=== PATIENT | female | born 1935 | race Caucasian/White ===

== ENCOUNTER 2018-02-06 13:12 | Emergency (ER) | payer OTHER ==
[~2018-02-06] VITALS: Ht 160 cm; Wt 69.7 kg
[2018-02-06 13:55] LABS: BASOPHILS # (AUTO) 0.04 x10^3/uL (0-0.1); BASOPHILS % (AUTO) 1 % (0-1); EOSINOPHILS # (AUTO) 0.09 x10^3/uL (0-0.4); EOSINOPHILS % (AUTO) 1 % (1-7); LYMPHOCYTES # (AUTO) 2.67 x10^3/uL (1-3.4); LYMPHOCYTES % (AUTO) 39 % (22-44); MD NO; MEAN CORPUSCULAR HEMOGLOBIN 30.3 pg (27.0-34.8); MEAN CORPUSCULAR HGB CONC 33.9 g/dL (32.4-35.8); MEAN CORPUSCULAR VOLUME 89.4 fL (80-100); MEAN PLATELET VOLUME 8.1 fL (7.4-10.4); MONOCYTES # (AUTO) 0.81 x10^3/uL (0.2-0.8); MONOCYTES % (AUTO) 12 % (2-9); NEUTROPHILS # (AUTO) 3.31 x10^3/uL (1.8-6.8); NEUTROPHILS % (AUTO) 48 % (42-75); PLATELET COUNT 202 x10^3/uL (130-400); RED BLOOD COUNT 4.73 x10^6/uL (3.82-5.3); RED CELL DISTRIBUTION WIDTH 14.3 % (9.6-15.2)
[2018-02-06 13:58] LABS: INTERNATIONAL NORMALIZED RATIO 1.03 (0.93-1.1); PROTHROMBIN TIME 10.7 Seconds (9.6-11.5)
[2018-02-06] MEDS ORDERED: SODIUM CHLORIDE FLUSH 10ML SYR IVF ONE (14:00)
[2018-02-06 14:03] LABS: ALANINE AMINOTRANSFERASE 21 U/L (12-78); ALBUMIN 3.4 g/dL (3.4-5.0); ANION GAP 7 mmol/L (5-15); CALCIUM 8.6 mg/dL (8.5-10.1); CHLORIDE 110 mmol/L (98-107); CREATININE 1.11 mg/dL (0.55-1.02)
[2018-02-06 14:07] LABS: ALKALINE PHOSPHATASE 79 U/L (45-117); BILIRUBIN,TOTAL 0.7 mg/dL (0.2-1.0); TOTAL PROTEIN 7.2 g/dL (6.4-8.2); TROPONIN I < 0.015 ng/mL (0.000-0.045)
[2018-02-06 17:13] VITALS: BP 165/76
== END 2018-02-06 17:16 | disposition home or self-care (01) ==
LOC: ED 14:15
DX: R20.2 Paresthesia of skin (principal); I10 Essential (primary) hypertension; I25.2 Old myocardial infarction; R79.1 Abnormal coagulation profile
CPT/HCPCS: 36415; 70450; 70551; 71045; 80053; 84484; 85025; 85610; 93005; 99285

== ENCOUNTER 2018-11-02 16:58 | Inpatient (IN) | payer MEDICARE, OTHER ==
[~2018-11-02] VITALS: Ht 160 cm; Wt 67.1 kg
[2018-11-02 17:32] LABS: BASOPHILS # (AUTO) 0.02 x10^3/uL (0-0.1); BASOPHILS % (AUTO) 0 % (0-1); EOSINOPHILS # (AUTO) 0.04 x10^3/uL (0-0.4); EOSINOPHILS % (AUTO) 1 % (1-7); LYMPHOCYTES % (AUTO) 18 % (22-44); MD NO; MEAN CORPUSCULAR HEMOGLOBIN 30.1 pg (27.0-34.8); MEAN CORPUSCULAR VOLUME 88.6 fL (80-100); MEAN PLATELET VOLUME 7.7 fL (7.4-10.4); MONOCYTES # (AUTO) 0.29 x10^3/uL (0.2-0.8); MONOCYTES % (AUTO) 4 % (2-9); NEUTROPHILS # (AUTO) 5.18 x10^3/uL (1.8-6.8); NEUTROPHILS % (AUTO) 77 % (42-75); PLATELET COUNT 237 x10^3/uL (130-400); RED BLOOD COUNT 4.64 x10^6/uL (3.82-5.3); RED CELL DISTRIBUTION WIDTH 14.1 % (9.6-15.2)
[2018-11-02 17:39] LABS: INTERNATIONAL NORMALIZED RATIO 1.03 (0.93-1.1); PROTHROMBIN TIME 10.8 Seconds (9.6-11.5)
[2018-11-02 17:42] LABS: ALBUMIN 3.7 g/dL (3.4-5.0); ANION GAP 5 mmol/L (5-15); CALCIUM 8.9 mg/dL (8.5-10.1); CHLORIDE 111 mmol/L (98-107)
--- NOTE | 2018-11-02 17:43 | NUR ---
THIS IS A 83 Y/O FEMALE PT ARRIVING FROM HOME AFTER DAUGHTER DISCOVERED HER WITH APHASIA AND LEFT SIDED DROOP AT HOME AT 1230. DAUGHTER SAW HER MOTHER LAST NORMAL @ 0730. PT HAS A NIH SCALE OF 6 AT HIS TIME. (1 GAZE, 2, FACIAL PALSY, 1 LEG AND ARM LEFT, 1 APHASIA, 1 DYSATHRIA). PT IS ABLE TO FOLLOW COMMANDS AND IS A/OX4. PT HAD EMESIS IN ROUTE ON AMBULANCE. DAUGHTER REPORTS COMPLEX MEDICAL HX. PT TAKEN TO CT IMMEDIATELY FOR EVAL. MD PAYTON AT BEDSIDE FOR EVALUATION WELL PRIOR TO CT. BG NORMAL AT THIS TIME. PT CONNECTED TO ALL MONITORS (RNS PRESENT FABBY CCU, REBEL Nichols NEURO NURSE, RAMSES ED RN) PAGE TO NEURO PLACED WELL.
[2018-11-02 17:46] LABS: ALANINE AMINOTRANSFERASE 23 U/L (12-78); ALKALINE PHOSPHATASE 93 U/L (45-117); BILIRUBIN,TOTAL 0.8 mg/dL (0.2-1.0); CREATININE 1.17 mg/dL (0.55-1.02); TOTAL PROTEIN 7.8 g/dL (6.4-8.2)
--- NOTE | 2018-11-02 18:22 | NUR ---
BREAK RN: pt laying on gurney sleeping, NAD with chest rise/fall, no needs at this time, family at BS, call light within reach.
[2018-11-02] MEDS ORDERED: SODIUM CHLORIDE FLUSH 10ML SYR IVF PRN (18:30)
[2018-11-02] MEDS ORDERED: LABETALOL 5MG/ML, 20ML IV PRN (19:00)
[2018-11-02] MEDS ORDERED: ONDANSETRON 2MG/ML, 2ML IVPush PRN (19:00)
[2018-11-02] MEDS ORDERED: ACETAMINOPHEN 325 MG TABLET PO PRN (19:00)
[2018-11-02] MEDS ORDERED: ASPI-650 PO (19:37)
[2018-11-02] MEDS ORDERED: ATOR40TA78 PO (19:37)
[2018-11-02] MEDS ORDERED: LISI30TA4 PO (19:37)
[2018-11-02 20:14] VITALS: BP 136/53
[2018-11-02] MEDS: ATORVASTATIN 40 MG TABLET PO SCH (21:00)
[2018-11-03 00:03] VITALS: BP 124/51
[2018-11-03] MEDS ORDERED: OMNIPAQUE 350 MG/ML, 100ML BOTTLE ONE (00:41)
[2018-11-03 05:21] LABS: BASOPHILS # (AUTO) 0.02 x10^3/uL (0-0.1); BASOPHILS % (AUTO) 0 % (0-1); EOSINOPHILS # (AUTO) 0.01 x10^3/uL (0-0.4); EOSINOPHILS % (AUTO) 0 % (1-7); LYMPHOCYTES # (AUTO) 1.53 x10^3/uL (1-3.4); LYMPHOCYTES % (AUTO) 20 % (22-44); MD NO; MEAN CORPUSCULAR HGB CONC 34.3 g/dL (32.4-35.8); MEAN CORPUSCULAR VOLUME 87.6 fL (80-100); MEAN PLATELET VOLUME 7.9 fL (7.4-10.4); MONOCYTES % (AUTO) 8 % (2-9); NEUTROPHILS % (AUTO) 72 % (42-75); PLATELET COUNT 216 x10^3/uL (130-400); RED BLOOD COUNT 4.33 x10^6/uL (3.82-5.3)
[2018-11-03 05:37] LABS: ALBUMIN 3.4 g/dL (3.4-5.0); ANION GAP 5 mmol/L (5-15); CALCIUM 8.5 mg/dL (8.5-10.1); CHLORIDE 113 mmol/L (98-107)
[2018-11-03 05:40] LABS: ALANINE AMINOTRANSFERASE 21 U/L (12-78); ALKALINE PHOSPHATASE 79 U/L (45-117); BILIRUBIN,TOTAL 0.8 mg/dL (0.2-1.0); CHOL/HDL RATIO 2.4; CHOLESTEROL, TOTAL 162 mg/dL (140-239); CREATININE 1.13 mg/dL (0.55-1.02); HDL CHOL % 42 % (28-40); HDL CHOLESTEROL (DIRECT) 68 mg/dL (40-60); LDL CHOLESTEROL,CALCULATED 80 mg/dL (54-169); LDL/HDL RATIO 1.2 (0.5-3.0); TRIGLYCERIDES 72 mg/dL (50-200); VLDL CHOLESTEROL 14 mg/dL (0-25)
[2018-11-03 06:14] LABS: HEMOGLOBIN A1C 6.1 % (4.2-6.3)
[2018-11-03 08:59] VITALS: BP 116/62
--- NOTE | 2018-11-03 11:50 | NUR ---
REC CHOPPED/THIN; swallow precautions sheet posted at bedside Addendum: 11/03/18 at [address] Amended: Links added.
[2018-11-03 12:30] VITALS: BP 129/65
[2018-11-03] MEDS: CLOPIDOGREL 75 MG TABLET PO SCH (17:09)
[2018-11-03] MEDS: ASPIRIN 81 MG TABLET CHEW PO/NG SCH (17:09)
[2018-11-03 18:36] VITALS: BP 108/66
[2018-11-03] MEDS: ATORVASTATIN 40 MG TABLET PO SCH (21:07)
[2018-11-04 00:57] VITALS: BP 161/84
[2018-11-04 05:44] LABS: ALBUMIN 3.2 g/dL (3.4-5.0); ANION GAP 5 mmol/L (5-15); CALCIUM 8.6 mg/dL (8.5-10.1); CHLORIDE 112 mmol/L (98-107)
[2018-11-04 05:47] LABS: ALANINE AMINOTRANSFERASE 18 U/L (12-78); ALKALINE PHOSPHATASE 75 U/L (45-117); CREATININE 1.09 mg/dL (0.55-1.02); TOTAL PROTEIN 6.9 g/dL (6.4-8.2)
[2018-11-04 06:04] LABS: BASOPHILS # (AUTO) 0.04 x10^3/uL (0-0.1); BASOPHILS % (AUTO) 1 % (0-1); EOSINOPHILS # (AUTO) 0.06 x10^3/uL (0-0.4); EOSINOPHILS % (AUTO) 1 % (1-7); LYMPHOCYTES # (AUTO) 1.67 x10^3/uL (1-3.4); LYMPHOCYTES % (AUTO) 28 % (22-44); MD NO; MEAN CORPUSCULAR HGB CONC 34.1 g/dL (32.4-35.8); MEAN CORPUSCULAR VOLUME 88.2 fL (80-100); MONOCYTES # (AUTO) 0.66 x10^3/uL (0.2-0.8); MONOCYTES % (AUTO) 11 % (2-9); NEUTROPHILS # (AUTO) 3.57 x10^3/uL (1.8-6.8); NEUTROPHILS % (AUTO) 60 % (42-75); PLATELET COUNT 206 x10^3/uL (130-400); RED BLOOD COUNT 4.43 x10^6/uL (3.82-5.3); RED CELL DISTRIBUTION WIDTH 14.5 % (9.6-15.2)
[2018-11-04 07:40] VITALS: BP 155/64
[2018-11-04] MEDS: CLOPIDOGREL 75 MG TABLET PO SCH (08:10)
[2018-11-04] MEDS: ASPIRIN 81 MG TABLET CHEW PO/NG SCH (08:13)
[2018-11-04 12:59] VITALS: BP 128/58
[2018-11-04 20:00] VITALS: BP 126/66
[2018-11-04] MEDS: ATORVASTATIN 40 MG TABLET PO SCH (20:45)
[2018-11-05 00:47] VITALS: BP 137/69
[2018-11-05 04:25] LABS: BASOPHILS # (AUTO) 0.02 x10^3/uL (0-0.1); BASOPHILS % (AUTO) 0 % (0-1); EOSINOPHILS # (AUTO) 0.08 x10^3/uL (0-0.4); EOSINOPHILS % (AUTO) 2 % (1-7); LYMPHOCYTES # (AUTO) 1.35 x10^3/uL (1-3.4); LYMPHOCYTES % (AUTO) 23 % (22-44); MD NO; MEAN CORPUSCULAR HEMOGLOBIN 30.6 pg (27.0-34.8); MEAN CORPUSCULAR HGB CONC 34.5 g/dL (32.4-35.8); MEAN CORPUSCULAR VOLUME 88.6 fL (80-100); MEAN PLATELET VOLUME 8.1 fL (7.4-10.4); MONOCYTES # (AUTO) 0.74 x10^3/uL (0.2-0.8); MONOCYTES % (AUTO) 13 % (2-9); NEUTROPHILS # (AUTO) 3.59 x10^3/uL (1.8-6.8); NEUTROPHILS % (AUTO) 62 % (42-75); PLATELET COUNT 189 x10^3/uL (130-400); RED BLOOD COUNT 4.67 x10^6/uL (3.82-5.3); RED CELL DISTRIBUTION WIDTH 14.3 % (9.6-15.2)
[2018-11-05 04:30] LABS: ALBUMIN 3.3 g/dL (3.4-5.0); ANION GAP 4 mmol/L (5-15); CALCIUM 8.5 mg/dL (8.5-10.1); CHLORIDE 112 mmol/L (98-107); CREATININE 1.07 mg/dL (0.55-1.02)
[2018-11-05 08:15] VITALS: BP 127/62
[2018-11-05] MEDS: CLOPIDOGREL 75 MG TABLET PO SCH (09:55)
[2018-11-05] MEDS: ASPIRIN 81 MG TABLET CHEW PO/NG SCH (09:55)
[2018-11-05 13:15] VITALS: BP 143/64
[2018-11-05 18:53] VITALS: BP 162/78
[2018-11-05 20:42] VITALS: BP 142/72
[2018-11-05] MEDS: ATORVASTATIN 40 MG TABLET PO SCH (21:11)
[2018-11-06 01:37] VITALS: BP 142/67
[2018-11-06 04:53] VITALS: BP 127/67
[2018-11-06 06:49] VITALS: BP 140/76
[2018-11-06] MEDS: CLOPIDOGREL 75 MG TABLET PO SCH (09:43)
[2018-11-06] MEDS: ASPIRIN 81 MG TABLET CHEW PO/NG SCH (09:43)
[2018-11-06 14:04] VITALS: BP 126/86
[2018-11-06 19:19] VITALS: BP 126/74
[2018-11-06] MEDS: ATORVASTATIN 40 MG TABLET PO SCH (20:40)
[2018-11-06] MEDS: APIXABAN 5 MG TABLET PO SCH (20:40)
[2018-11-07 00:16] VITALS: BP 120/74
[2018-11-07 03:55] VITALS: BP 111/61
[2018-11-07 04:54] LABS: BASOPHILS # (AUTO) 0.03 x10^3/uL (0-0.1); BASOPHILS % (AUTO) 0 % (0-1); EOSINOPHILS # (AUTO) 0.05 x10^3/uL (0-0.4); EOSINOPHILS % (AUTO) 1 % (1-7); LYMPHOCYTES # (AUTO) 1.79 x10^3/uL (1-3.4); LYMPHOCYTES % (AUTO) 24 % (22-44); MD NO; MEAN CORPUSCULAR HEMOGLOBIN 30.5 pg (27.0-34.8); MEAN CORPUSCULAR HGB CONC 34.7 g/dL (32.4-35.8); MEAN CORPUSCULAR VOLUME 87.9 fL (80-100); MEAN PLATELET VOLUME 8.2 fL (7.4-10.4); MONOCYTES % (AUTO) 10 % (2-9); NEUTROPHILS # (AUTO) 4.88 x10^3/uL (1.8-6.8); NEUTROPHILS % (AUTO) 66 % (42-75); PLATELET COUNT 242 x10^3/uL (130-400); RED BLOOD COUNT 5.49 x10^6/uL (3.82-5.3); RED CELL DISTRIBUTION WIDTH 13.8 % (9.6-15.2)
[2018-11-07 05:09] LABS: CHLORIDE 113 mmol/L (98-107)
[2018-11-07 05:16] LABS: ANION GAP 6 mmol/L (5-15); CALCIUM 9.1 mg/dL (8.5-10.1); CREATININE 1.19 mg/dL (0.55-1.02)
[2018-11-07 05:17] LABS: ALANINE AMINOTRANSFERASE 21 U/L (12-78); ALBUMIN 3.6 g/dL (3.4-5.0); ALKALINE PHOSPHATASE 101 U/L (45-117); BILIRUBIN,TOTAL 1.2 mg/dL (0.2-1.0)
[2018-11-07 05:48] LABS: CULTURE INDICATED? YES; MICROSCOPIC INDICATED
[2018-11-07 07:40] VITALS: BP 130/85
[2018-11-07] MEDS: ASPIRIN 81 MG TABLET CHEW PO/NG SCH (08:46)
[2018-11-07] MEDS: APIXABAN 5 MG TABLET PO SCH ×2 (08:46→20:58)
[2018-11-07] MEDS: SODIUM CHLORIDE 0.45% 1,000 ML IV SCH ×2 (08:54→16:58)
[2018-11-07 11:32] VITALS: BP 127/91
[2018-11-07] MEDS: METOPROLOL TARTRATE 25 MG TABLET PO SCH ×2 (16:58→20:58)
[2018-11-07 18:30] VITALS: BP 139/90
[2018-11-07] MEDS: ATORVASTATIN 40 MG TABLET PO SCH (20:57)
[2018-11-07 23:35] VITALS: BP 124/85
[2018-11-08] MEDS: SODIUM CHLORIDE 0.45% 1,000 ML IV SCH ×2 (01:01→09:06)
[2018-11-08 03:40] VITALS: BP 106/51
[2018-11-08 07:52] VITALS: BP 112/71
[2018-11-08] MEDS ORDERED: METOPROLOL TARTRATE 25 MG TABLET PO SCH (09:00)
[2018-11-08] MEDS: APIXABAN 5 MG TABLET PO SCH (09:05)
[2018-11-08] MEDS: ASPIRIN 81 MG TABLET CHEW PO/NG SCH (09:05)
[2018-11-08] MEDS ORDERED: ASPI-515 PO/NG (09:54)
[2018-11-08] MEDS ORDERED: APIX5TAB PO (09:54)
[2018-11-08] MEDS ORDERED: METO25TA35 PO (09:54)
[2018-11-08] MEDS ORDERED: AMOX1TAB64 PO (10:01)
[2018-11-08 12:35] VITALS: BP 130/66
== END 2018-11-08 14:51 | DRG 65 ==
LOC: ED 18:06 → EDIP 18:15 → 4WST 19:54
PROVIDERS: ADMIT Internal Medicine; ATTEND Internal Medicine
DX: I63.9 Cerebral infarction, unspecified (principal); D68.69 Other thrombophilia; I50.30 Unspecified diastolic (congestive) heart failure; I13.0 Hypertensive heart and chronic kidney disease with heart failure and stage 1 through stage 4 chronic kidney disease, or unspecified chronic kidney disease; I65.21 Occlusion and stenosis of right carotid artery; R29.810 Facial weakness; I48.0 Paroxysmal atrial fibrillation; N18.9 Chronic kidney disease, unspecified; I25.10 Atherosclerotic heart disease of native coronary artery without angina pectoris; R47.01 Aphasia; Z86.73 Personal history of transient ischemic attack (TIA), and cerebral infarction without residual deficits; Z79.82 Long term (current) use of aspirin; Z79.01 Long term (current) use of anticoagulants; Z79.02 Long term (current) use of antithrombotics/antiplatelets; Z79.899 Other long term (current) drug therapy; I25.2 Old myocardial infarction
CPT/HCPCS: 36415; 70450; 70496; 70498; 70551; 80048; 80053; 80061; 81001; 82040; 82962; 83036; 83735; 84100; 85025; 85520; 85610; 85730; 87086; 93005; 93306; 93880; 96374; 99285; G0378; J2405; Q9967; 92523-GN

== ENCOUNTER 2019-01-05 16:19 | Inpatient (IN) | payer MEDICARE ==
[~2019-01-05] VITALS: Ht 160 cm; Wt 66.4 kg
[~2019-01-05 16:19] MED LIST: AMOX1TAB64 PO; APIX5TAB PO; ASPI-515 PO/NG; ASPI-650 PO; ATOR40TA78 PO; LISI30TA4 PO; METO25TA35 PO
--- NOTE | 2019-01-05 16:30 | NUR ---
PT PLACED ON HEART MONITOR, BP CUFF, PULSE OX. EKG COMPLETED AT BS. PT DENIES PAIN OR ANY SX. PER PRAVEEN, PT WITH HX OF CVA WITH RESIDUAL L SIDED WEAKNESS AND SLURRED SPEECH. CALL LIGHT WITHIN REACH, WARM BLANKET PROVIDED.
[2019-01-05] MEDS ORDERED: SODIUM CHLORIDE FLUSH 10ML SYR IVF ONE (17:00)
[2019-01-05 17:02] LABS: BASOPHILS # (AUTO) 0.02 x10^3/uL (0-0.1); BASOPHILS % (AUTO) 0 % (0-1); EOSINOPHILS # (AUTO) 0.06 x10^3/uL (0-0.4); EOSINOPHILS % (AUTO) 1 % (1-7); LYMPHOCYTES % (AUTO) 30 % (22-44); MD NO; MEAN CORPUSCULAR HGB CONC 33.6 g/dL (32.4-35.8); MEAN CORPUSCULAR VOLUME 92.4 fL (80-100); MEAN PLATELET VOLUME 8.4 fL (7.4-10.4); MONOCYTES # (AUTO) 0.56 x10^3/uL (0.2-0.8); MONOCYTES % (AUTO) 11 % (2-9); NEUTROPHILS # (AUTO) 2.81 x10^3/uL (1.8-6.8); NEUTROPHILS % (AUTO) 57 % (42-75); PLATELET COUNT 173 x10^3/uL (130-400); RED BLOOD COUNT 4.67 x10^6/uL (3.82-5.3); RED CELL DISTRIBUTION WIDTH 15.7 % (9.6-15.2)
[2019-01-05 17:09] LABS: INTERNATIONAL NORMALIZED RATIO 1.1 (0.93-1.1); PROTHROMBIN TIME 11.5 Seconds (9.6-11.5)
[2019-01-05 17:11] LABS: ALANINE AMINOTRANSFERASE 22 U/L (12-78); ALBUMIN 3.5 g/dL (3.4-5.0); ANION GAP 6 mmol/L (5-15); CALCIUM 8.5 mg/dL (8.5-10.1); CHLORIDE 111 mmol/L (98-107); CREATININE 1.14 mg/dL (0.55-1.02)
[2019-01-05 17:14] LABS: ALKALINE PHOSPHATASE 83 U/L (45-117); TOTAL PROTEIN 7.2 g/dL (6.4-8.2)
--- NOTE | 2019-01-05 17:17 | NUR ---
PT UP TO BSC WITH SBA. URINE COLLECTED/SENT TO LAB. AWAITING CT AND LAB RESULTS. FAMILY AT BS. CALL LIGHT WITHIN REACH, CHARI BECKERER PLACED. PT AND FAMILY UPDATED ON POC.
[2019-01-05 17:27] LABS: MICROSCOPIC AUTO
[2019-01-05 17:42] LABS: CULTURE INDICATED? YES
--- NOTE | 2019-01-05 17:55 | NUR ---
ALL RESULTS BACK, PT FOR RECHECK.
[2019-01-05] MEDS ORDERED: METO25TA35 PO (18:25)
[2019-01-05] MEDS ORDERED: NAPR220C2 PO (18:25)
[2019-01-05] MEDS ORDERED: FAMO-79 PO (18:25)
[2019-01-05] MEDS ORDERED: GABA300C10 PO (18:25)
[2019-01-05] MEDS ORDERED: ALPR0.5T6 PO (18:25)
[2019-01-05] MEDS ORDERED: SODIUM CHLORIDE FLUSH 10ML SYR IVF PRN (18:30)
--- NOTE | 2019-01-05 18:56 | NUR ---
PT TO BE ADMITTED, FAMILY UPDATED. AWAITING ADMIT ROOM.
[2019-01-05] MEDS ORDERED: POLYETHYLENE GLYCOL 17 GM PACKET PO PRN (19:30)
[2019-01-05] MEDS ORDERED: ONDANSETRON ODT 4 MG PO PRN (19:30)
[2019-01-05] MEDS ORDERED: CEFTRIAXONE PMX 1GM/50ML 50 ML IV SCH (19:30)
[2019-01-05] MEDS ORDERED: BISACODYL 10 MG SUPP PR PRN (19:30)
[2019-01-05] MEDS ORDERED: NAPROXEN 250 MG TABLET PO PRN (19:30)
--- NOTE | 2019-01-05 19:35 | NUR ---
REPORT TO SMITH RN, PT READY FOR TRANSPORT.
[2019-01-05 20:06] VITALS: BP 154/83
[2019-01-05] MEDS: ATORVASTATIN 40 MG TABLET PO SCH (21:28)
[2019-01-05] MEDS: FAMOTIDINE 20 MG TABLET PO SCH (21:29)
[2019-01-05] MEDS: SODIUM CHLORIDE 0.45% 1,000 ML IV SCH (21:29)
[2019-01-05] MEDS: METOPROLOL TARTRATE 25 MG TABLET PO SCH (21:29)
[2019-01-05] MEDS: GABAPENTIN 300 MG CAPSULE PO SCH (21:29)
[2019-01-05] MEDS: APIXABAN 5 MG TABLET PO SCH (21:29)
[2019-01-06 01:02] VITALS: BP 145/87
[2019-01-06 06:50] LABS: BASOPHILS # (AUTO) 0.03 x10^3/uL (0-0.1); BASOPHILS % (AUTO) 1 % (0-1); EOSINOPHILS # (AUTO) 0.09 x10^3/uL (0-0.4); EOSINOPHILS % (AUTO) 2 % (1-7); LYMPHOCYTES # (AUTO) 1.57 x10^3/uL (1-3.4); LYMPHOCYTES % (AUTO) 31 % (22-44); MD NO; MEAN CORPUSCULAR HEMOGLOBIN 30.3 pg (27.0-34.8); MEAN CORPUSCULAR HGB CONC 33.2 g/dL (32.4-35.8); MEAN CORPUSCULAR VOLUME 91.5 fL (80-100); MEAN PLATELET VOLUME 8.3 fL (7.4-10.4); MONOCYTES # (AUTO) 0.59 x10^3/uL (0.2-0.8); MONOCYTES % (AUTO) 12 % (2-9); NEUTROPHILS # (AUTO) 2.76 x10^3/uL (1.8-6.8); NEUTROPHILS % (AUTO) 55 % (42-75); PLATELET COUNT 179 x10^3/uL (130-400); RED BLOOD COUNT 4.66 x10^6/uL (3.82-5.3); RED CELL DISTRIBUTION WIDTH 15.4 % (9.6-15.2)
[2019-01-06 07:02] LABS: ALANINE AMINOTRANSFERASE 19 U/L (12-78); ALBUMIN 3.2 g/dL (3.4-5.0); ANION GAP 6 mmol/L (5-15); CALCIUM 8.5 mg/dL (8.5-10.1); CHLORIDE 113 mmol/L (98-107); CREATININE 0.98 mg/dL (0.55-1.02)
[2019-01-06 07:04] LABS: ALKALINE PHOSPHATASE 83 U/L (45-117); BILIRUBIN,TOTAL 1.2 mg/dL (0.2-1.0); TOTAL PROTEIN 6.9 g/dL (6.4-8.2)
[2019-01-06 07:42] VITALS: BP 155/78
[2019-01-06] MEDS: APIXABAN 5 MG TABLET PO SCH ×2 (09:26→23:02)
[2019-01-06] MEDS: METOPROLOL TARTRATE 25 MG TABLET PO SCH ×2 (09:26→23:03)
[2019-01-06] MEDS: FAMOTIDINE 20 MG TABLET PO SCH ×2 (09:26→23:03)
[2019-01-06] MEDS: SENNA/DOCUSATE TABLET PO SCH (09:28)
[2019-01-06 10:07] VITALS: BP 109/62
[2019-01-06] MEDS ORDERED: PIPERACILLIN/TAZO/PMX 3.375GM 50 ML IV SCH (12:30)
[2019-01-06] MEDS ORDERED: CEFTRIAXONE PMX 1GM/50ML 50 ML IV SCH (13:00)
[2019-01-06 13:35] VITALS: BP 156/70
[2019-01-06] MEDS: ACETAMINOPHEN 325 MG TABLET PO PRN (15:58)
[2019-01-06] MEDS: SODIUM CHLORIDE 0.45% 1,000 ML IV SCH ×2 (15:58→23:15)
[2019-01-06 20:12] VITALS: BP 146/70
[2019-01-06] MEDS: ATORVASTATIN 40 MG TABLET PO SCH (23:02)
[2019-01-06] MEDS: GABAPENTIN 300 MG CAPSULE PO SCH (23:02)
[2019-01-07 00:10] VITALS: BP 157/71
[2019-01-07 05:13] LABS: ALANINE AMINOTRANSFERASE 19 U/L (12-78); ALBUMIN 3.1 g/dL (3.4-5.0); ANION GAP 7 mmol/L (5-15); CALCIUM 8.7 mg/dL (8.5-10.1); CHLORIDE 115 mmol/L (98-107); CREATININE 0.89 mg/dL (0.55-1.02)
[2019-01-07 05:15] LABS: ALKALINE PHOSPHATASE 84 U/L (45-117); TOTAL PROTEIN 6.8 g/dL (6.4-8.2)
[2019-01-07 05:24] LABS: BASOPHILS # (AUTO) 0.01 x10^3/uL (0-0.1); BASOPHILS % (AUTO) 0 % (0-1); EOSINOPHILS # (AUTO) 0.11 x10^3/uL (0-0.4); EOSINOPHILS % (AUTO) 2 % (1-7); LYMPHOCYTES # (AUTO) 1.29 x10^3/uL (1-3.4); LYMPHOCYTES % (AUTO) 26 % (22-44); MD NO; MEAN CORPUSCULAR HEMOGLOBIN 31.3 pg (27.0-34.8); MEAN CORPUSCULAR HGB CONC 34.4 g/dL (32.4-35.8); MEAN CORPUSCULAR VOLUME 91.1 fL (80-100); MEAN PLATELET VOLUME 8.2 fL (7.4-10.4); MONOCYTES # (AUTO) 0.58 x10^3/uL (0.2-0.8); MONOCYTES % (AUTO) 12 % (2-9); NEUTROPHILS # (AUTO) 2.89 x10^3/uL (1.8-6.8); NEUTROPHILS % (AUTO) 59 % (42-75); PLATELET COUNT 182 x10^3/uL (130-400); RED BLOOD COUNT 4.58 x10^6/uL (3.82-5.3); RED CELL DISTRIBUTION WIDTH 15.3 % (9.6-15.2)
[2019-01-07 07:34] VITALS: BP 153/78
[2019-01-07] MEDS: ACETAMINOPHEN 325 MG TABLET PO PRN (09:13)
[2019-01-07] MEDS: APIXABAN 5 MG TABLET PO SCH ×2 (09:13→20:14)
[2019-01-07] MEDS: SENNA/DOCUSATE TABLET PO SCH (09:14)
[2019-01-07] MEDS: METOPROLOL TARTRATE 25 MG TABLET PO SCH ×2 (09:14→20:14)
[2019-01-07] MEDS: FAMOTIDINE 20 MG TABLET PO SCH ×2 (09:14→20:14)
[2019-01-07] MEDS: DEXTROSE 5% 1,000 ML IV SCH (12:54)
[2019-01-07 15:05] VITALS: BP 160/90
[2019-01-07 19:46] VITALS: BP 156/81
[2019-01-07] MEDS: ATORVASTATIN 40 MG TABLET PO SCH (20:14)
[2019-01-07] MEDS: GABAPENTIN 300 MG CAPSULE PO SCH (20:14)
[2019-01-08] MEDS: DEXTROSE 5% 1,000 ML IV SCH (02:51)
[2019-01-08 02:52] VITALS: BP 143/77
[2019-01-08 05:16] LABS: BASOPHILS # (AUTO) 0.04 x10^3/uL (0-0.1); BASOPHILS % (AUTO) 1 % (0-1); EOSINOPHILS # (AUTO) 0.09 x10^3/uL (0-0.4); EOSINOPHILS % (AUTO) 2 % (1-7); LYMPHOCYTES # (AUTO) 1.21 x10^3/uL (1-3.4); LYMPHOCYTES % (AUTO) 25 % (22-44); MD NO; MEAN CORPUSCULAR HEMOGLOBIN 31.1 pg (27.0-34.8); MEAN CORPUSCULAR HGB CONC 33.6 g/dL (32.4-35.8); MEAN CORPUSCULAR VOLUME 92.5 fL (80-100); MEAN PLATELET VOLUME 8.3 fL (7.4-10.4); MONOCYTES # (AUTO) 0.67 x10^3/uL (0.2-0.8); MONOCYTES % (AUTO) 14 % (2-9); NEUTROPHILS # (AUTO) 2.88 x10^3/uL (1.8-6.8); NEUTROPHILS % (AUTO) 59 % (42-75); PLATELET COUNT 182 x10^3/uL (130-400); RED BLOOD COUNT 4.72 x10^6/uL (3.82-5.3); RED CELL DISTRIBUTION WIDTH 14.8 % (9.6-15.2)
[2019-01-08 05:35] LABS: CHLORIDE 112 mmol/L (98-107)
[2019-01-08 05:42] LABS: ALANINE AMINOTRANSFERASE 18 U/L (12-78); ALBUMIN 3.2 g/dL (3.4-5.0); ALKALINE PHOSPHATASE 84 U/L (45-117); ANION GAP 5 mmol/L (5-15); CALCIUM 8.7 mg/dL (8.5-10.1); CREATININE 0.94 mg/dL (0.55-1.02)
[2019-01-08 09:39] VITALS: BP 128/81
[2019-01-08] MEDS: SENNA/DOCUSATE TABLET PO SCH (09:41)
[2019-01-08] MEDS: APIXABAN 5 MG TABLET PO SCH ×2 (09:41→20:26)
[2019-01-08] MEDS: LISINOPRIL 5 MG TABLET PO SCH (09:43)
[2019-01-08] MEDS: FAMOTIDINE 20 MG TABLET PO SCH (09:43)
[2019-01-08] MEDS: METOPROLOL TARTRATE 25 MG TABLET PO SCH ×2 (09:43→20:26)
[2019-01-08] MEDS ORDERED: POTASSIUM CHLORIDE 20 MEQ TAB.ER.PRT PO ONE (11:00)
[2019-01-08 13:12] VITALS: BP 126/72
[2019-01-08 19:27] VITALS: BP 122/78
[2019-01-08] MEDS: ATORVASTATIN 40 MG TABLET PO SCH (20:25)
[2019-01-08] MEDS: GABAPENTIN 300 MG CAPSULE PO SCH (20:26)
[2019-01-08] MEDS ORDERED: FAMOTIDINE 20 MG TABLET PO SCH (21:00)
[2019-01-09 04:28] VITALS: BP 138/81
[2019-01-09] MEDS: DEXTROSE 5% 1,000 ML IV SCH ×2 (05:14→16:20)
[2019-01-09 05:38] LABS: BASOPHILS # (AUTO) 0.05 x10^3/uL (0-0.1); BASOPHILS % (AUTO) 1 % (0-1); EOSINOPHILS % (AUTO) 2 % (1-7); LYMPHOCYTES # (AUTO) 1.83 x10^3/uL (1-3.4); LYMPHOCYTES % (AUTO) 35 % (22-44); MD NO; MEAN CORPUSCULAR HGB CONC 33.6 g/dL (32.4-35.8); MEAN CORPUSCULAR VOLUME 92.3 fL (80-100); MEAN PLATELET VOLUME 8.3 fL (7.4-10.4); MONOCYTES # (AUTO) 0.62 x10^3/uL (0.2-0.8); MONOCYTES % (AUTO) 12 % (2-9); NEUTROPHILS # (AUTO) 2.67 x10^3/uL (1.8-6.8); NEUTROPHILS % (AUTO) 51 % (42-75); PLATELET COUNT 191 x10^3/uL (130-400); RED BLOOD COUNT 4.71 x10^6/uL (3.82-5.3); RED CELL DISTRIBUTION WIDTH 15.3 % (9.6-15.2)
[2019-01-09 05:53] LABS: ALANINE AMINOTRANSFERASE 20 U/L (12-78); ALBUMIN 3.2 g/dL (3.4-5.0); ANION GAP 4 mmol/L (5-15); CALCIUM 9.2 mg/dL (8.5-10.1); CHLORIDE 115 mmol/L (98-107)
[2019-01-09 05:55] LABS: ALKALINE PHOSPHATASE 80 U/L (45-117); BILIRUBIN,TOTAL 1.1 mg/dL (0.2-1.0); TOTAL PROTEIN 7.1 g/dL (6.4-8.2)
[2019-01-09 08:00] VITALS: BP 128/75
[2019-01-09] MEDS: SENNA/DOCUSATE TABLET PO SCH (09:00)
[2019-01-09] MEDS ORDERED: ACETAMINOPHEN 325 MG TABLET PO PRN (09:00)
[2019-01-09 09:16] VITALS: BP 111/60
[2019-01-09] MEDS: LACTOBACILLUS CHEW TABLET PO SCH ×2 (09:17→15:38)
[2019-01-09] MEDS: LISINOPRIL 5 MG TABLET PO SCH (09:17)
[2019-01-09] MEDS: APIXABAN 5 MG TABLET PO SCH (09:18)
[2019-01-09] MEDS: METOPROLOL TARTRATE 25 MG TABLET PO SCH (09:20)
[2019-01-09] MEDS ORDERED: METO25TA35 PO (12:51)
[2019-01-09] MEDS ORDERED: LISI5TAB7 PO (12:51)
[2019-01-09] MEDS ORDERED: ACID1TAB7 PO (12:51)
[2019-01-09 13:45] VITALS: BP 149/84
== END 2019-01-09 18:15 | disposition home health service (06) | DRG 640 ==
LOC: ED 16:31 → EDIP 18:27 → 4EST 19:49
PROVIDERS: ADMIT Family Medicine; ATTEND Family Medicine
DX: E86.0 Dehydration (principal); G93.41 Metabolic encephalopathy; D68.69 Other thrombophilia; E87.0 Hyperosmolality and hypernatremia; F03.90 Unspecified dementia, unspecified severity, without behavioral disturbance, psychotic disturbance, mood disturbance, and anxiety; E78.5 Hyperlipidemia, unspecified; E87.6 Hypokalemia; I10 Essential (primary) hypertension; I25.10 Atherosclerotic heart disease of native coronary artery without angina pectoris; I25.2 Old myocardial infarction; I48.91 Unspecified atrial fibrillation; I49.3 Ventricular premature depolarization; Z91.81 History of falling; Z95.1 Presence of aortocoronary bypass graft; I73.9 Peripheral vascular disease, unspecified; I69.30 Unspecified sequelae of cerebral infarction; I08.1 Rheumatic disorders of both mitral and tricuspid valves; Z79.899 Other long term (current) drug therapy; Z79.82 Long term (current) use of aspirin
CPT/HCPCS: 36415; 70450; 70551; 80053; 81001; 82140; 83605; 85025; 85610; 85730; 87077; 87086; 87186; 93005; 99285; G0378; J0696; J7070

== ENCOUNTER 2019-02-04 16:02 | Emergency (ER) | payer MEDICARE ==
[~2019-02-04] VITALS: Ht 160 cm; Wt 65.5 kg
[~2019-02-04 16:02] MED LIST changes: +ACID1TAB7 PO; +ALPR0.5T6 PO; +FAMO-79 PO; +GABA300C10 PO; +LISI5TAB7 PO; +NAPR220C2 PO
[2019-02-04] MEDS ORDERED: SODIUM CHLORIDE FLUSH 10ML SYR IVF ONE (17:30)
[2019-02-04] MEDS ORDERED: METO25TA35 PO (17:44)
[2019-02-04] MEDS ORDERED: ALPR-475 PO (17:44)
[2019-02-04] MEDS ORDERED: SENN-52 PO (17:47)
[2019-02-04] MEDS ORDERED: ACID1TAB7 PO (17:47)
[2019-02-04 17:53] LABS: BASOPHILS # (AUTO) 0.03 x10^3/uL (0-0.1); BASOPHILS % (AUTO) 0 % (0-1); EOSINOPHILS # (AUTO) 0.14 x10^3/uL (0-0.4); EOSINOPHILS % (AUTO) 2 % (1-7); LYMPHOCYTES # (AUTO) 1.61 x10^3/uL (1-3.4); LYMPHOCYTES % (AUTO) 23 % (22-44); MD NO; MEAN CORPUSCULAR HGB CONC 33.3 g/dL (32.4-35.8); MEAN PLATELET VOLUME 7.7 fL (7.4-10.4); MONOCYTES % (AUTO) 10 % (2-9); NEUTROPHILS # (AUTO) 4.58 x10^3/uL (1.8-6.8); NEUTROPHILS % (AUTO) 65 % (42-75); PLATELET COUNT 230 x10^3/uL (130-400); RED BLOOD COUNT 4.49 x10^6/uL (3.82-5.3); RED CELL DISTRIBUTION WIDTH 14.4 % (9.6-15.2)
[2019-02-04 17:53] LABS: MICROSCOPIC INDICATED
[2019-02-04 18:00] LABS: CULTURE INDICATED? YES
[2019-02-04 18:03] LABS: INTERNATIONAL NORMALIZED RATIO 1.08 (0.93-1.1); PROTHROMBIN TIME 11.3 Seconds (9.6-11.5)
[2019-02-04 18:04] LABS: ALBUMIN 3.2 g/dL (3.4-5.0); ANION GAP 7 mmol/L (5-15); CHLORIDE 114 mmol/L (98-107)
[2019-02-04 18:07] LABS: ALANINE AMINOTRANSFERASE 24 U/L (12-78); ALKALINE PHOSPHATASE 95 U/L (45-117); BILIRUBIN,TOTAL 0.8 mg/dL (0.2-1.0); CREATININE 1.27 mg/dL (0.55-1.02); TOTAL PROTEIN 7.5 g/dL (6.4-8.2)
[2019-02-04] MEDS ORDERED: SODIUM CHLORIDE 0.9%, 500ML IVBOLUS ONE (18:30)
--- NOTE | 2019-02-04 18:38 | NUR ---
pt to ct.
[2019-02-04] MEDS ORDERED: OMNIPAQUE 350 MG/ML, 100ML BOTTLE ONE (18:55)
[2019-02-04] MEDS ORDERED: CEFTRIAXONE PMX 1GM/50ML 50 ML IV ONE (19:30)
--- NOTE | 2019-02-04 19:30 | NUR ---
Very pleasant lady, states a recent fall and her daughter came to see her and found some bruises and broiught her here. Currently denying pain. 500ml bolus started at this time
[2019-02-04] MEDS ORDERED: CEFTRIAXONE PMX 1GM/50ML 50 ML ONE (19:31)
--- NOTE | 2019-02-04 20:10 | NUR ---
PT UP TO BATHROOM WITH DAUGHTER, INFUSION ALMOST COMPLETE. DISCHARGE INSTRUCTIONS GIVEN VERBALLY TO DAUGHTER, NO QUESTIONS
[2019-02-04 20:15] VITALS: BP 112/67
== END 2019-02-04 20:54 | disposition home or self-care (01) ==
LOC: ED 17:26
DX: S20.219A Contusion of unspecified front wall of thorax, initial encounter (principal); S30.1XXA Contusion of abdominal wall, initial encounter; N30.01 Acute cystitis with hematuria; I10 Essential (primary) hypertension; I25.2 Old myocardial infarction; Z86.73 Personal history of transient ischemic attack (TIA), and cerebral infarction without residual deficits; W01.0XXA Fall on same level from slipping, tripping and stumbling without subsequent striking against object, initial encounter; Y93.89 Activity, other specified; Y92.009 Unspecified place in unspecified non-institutional (private) residence as the place of occurrence of the external cause; Y99.8 Other external cause status
CPT/HCPCS: 36415; 71260; 74177; 80053; 81001; 83690; 85025; 85610; 85730; 87077; 87086; 87186; 96365; 99284; J0696; J7040; Q9967

== ENCOUNTER 2019-03-30 18:42 | Emergency (ER) | payer MEDICARE ==
[~2019-03-30] VITALS: Ht 160 cm; Wt 64.0 kg
[~2019-03-30 18:42] MED LIST changes: +ALPR0.5T7 PO; +SENN-52 PO
[2019-03-30 19:08] LABS: MICROSCOPIC NOT IND
[2019-03-30 19:15] LABS: CULTURE INDICATED? NO
--- NOTE | 2019-03-30 20:34 | NUR ---
PT WITH DAUGHTER WHO REPORTS PT HAS HAS FREQUENT UTI'S AND PT PRESENTS TODAY WITH WORRIES OF BLOOD IN HER URINE. PT IN NO ACUTE DISTRESS. VS STABLE
[2019-03-30 20:39] VITALS: BP 152/86
--- NOTE | 2019-03-30 21:06 | NUR ---
at bedside for assessment.
== END 2019-03-30 21:27 | disposition home or self-care (01) ==
LOC: ED 21:18
DX: R30.0 Dysuria (principal); I10 Essential (primary) hypertension; I25.2 Old myocardial infarction; Z86.73 Personal history of transient ischemic attack (TIA), and cerebral infarction without residual deficits
CPT/HCPCS: 81003; 99283

== ENCOUNTER 2019-07-29 13:26 | Emergency (ER) | payer MEDICARE ==
[~2019-07-29] VITALS: Ht 165.1 cm; Wt 135.0 kg
--- NOTE | 2019-07-29 13:38 | NUR ---
Pt here for left nose bleed. Pt on eliqus blood thinner. Pt denies trauma or nose picking. Pt reports she has had 3 nose bleeds so far today. Pt denies any loss of loc. No black stool reported. Pt resting in bed with gown on. Awaiting further orders.
[2019-07-29] MEDS ORDERED: OXYMETAZOLINE NASAL SPRAY 0.05%,30ML ONE (13:53)
[2019-07-29] MEDS ORDERED: OXYMETAZOLINE NASAL SPRAY 0.05%, 15ML NAS ONE (14:00)
--- NOTE | 2019-07-29 14:04 | NUR ---
Pt medicated per emar.
[2019-07-29 14:05] VITALS: BP 146/86
--- NOTE | 2019-07-29 14:54 | NUR ---
Patient/Caregiver given discharge instructions and they have confirmed that they understand the instructions. Patient ambulatory with steady gait.
== END 2019-07-29 14:56 | disposition home or self-care (01) ==
LOC: ED 14:20
DX: R04.0 Epistaxis (principal); I10 Essential (primary) hypertension; I25.2 Old myocardial infarction; Z86.73 Personal history of transient ischemic attack (TIA), and cerebral infarction without residual deficits
CPT/HCPCS: 99283